=== PATIENT | female | born 1940 | race Caucasian/White ===

== ENCOUNTER 2024-07-06 17:21 | Emergency (ER) | payer MEDICARE, OTHER ==
[~2024-07-06] VITALS: Ht 157.5 cm; Wt 73.2 kg
[2024-07-06 17:23] VITALS: BP 166/68; PULSE 91; RESP 16; O2SAT 97
[2024-07-06 18:36] LABS: BILIRUBIN,URINE NEGATIVE (Neg); CLARITY,URINE CLOUDY (Clear); COLOR,URINE YELLOW (Yellow); GLUCOSE, URINE NEGATIVE (Neg); KETONES,URINE TRACE mg/dl (Neg); LEUKOCYTE ESTERASE ,URINE SMALL (Neg); NITRITES, URINE NEGATIVE (Neg); OCCULT BLOOD,URINE TRACE-INTACT (Neg); PROTEIN,URINE NEGATIVE (Neg); UROBILINOGEN,URINE 0.2 E.U/dL (0.2-1.0)
[2024-07-06 18:38] LABS: UA COLLECTION TYPE CLN CATCH MIDSTREAM
[2024-07-06 18:54] LABS: BACTERIA,URINE 1+ /HPF (Neg); MUCUS STRANDS NONE SEEN /LPF (Neg); RBC,URINE 0-2 /HPF (0-2); SQUAMOUS EPITHELIAL CELL,UR NONE SEEN /LPF (FEW); WBC CLUMPS,URINE MODERATE /HPF (NEGATIVE); WBC,URINE 30-50 /HPF (0-4)
[2024-07-06] MEDS ORDERED: CIPR-202 PO (18:57)
[2024-07-06] MEDS ORDERED: PHEN-824 PO (19:00)
[2024-07-06 19:07] VITALS: TEMP 98.2
[2024-07-06] MEDS: ciprofloxacin 250mg tablet PO ONE (19:12)
[2024-07-06] MEDS: phenazopyridine 100mg tablet PO ONE (19:12)
== END 2024-07-06 19:10 | disposition home or self-care (01) ==
LOC: ER 17:21
DX: N39.0 Urinary tract infection, site not specified (principal); I10 Essential (primary) hypertension; Z90.49 Acquired absence of other specified parts of digestive tract; Z88.1 Allergy status to other antibiotic agents; Z79.899 Other long term (current) drug therapy; Z98.890 Other specified postprocedural states
CPT/HCPCS: 81001; 87088; 99283

== ENCOUNTER 2025-05-19 16:10 | Emergency (ER) | payer MEDICARE, OTHER ==
[~2025-05-19] VITALS: Ht 157.5 cm; Wt 72.3 kg
[~2025-05-19 16:10] MED LIST: PHEN-824 PO
[2025-05-19 17:15] LABS: LEUKOCYTE ESTERASE ,URINE LARGE (Neg); NITRITES, URINE NEGATIVE (Neg); OCCULT BLOOD,URINE SMALL (Neg)
[2025-05-19] MEDS ORDERED: SULF1TAB49 PO (17:15)
--- NOTE | 2025-05-19 17:16 | Physician Documentation ---
History of Present Illness ~ Chief Complaint: Urinary Symptoms Stated Complaint: UTI Time Seen by MD: 16:21 Primary Medical Doctor: Dr. Camacho Source: patient Mode of Arrival: POV Exam Limitations: no limitations HPI 84-year-old female with history of chronic UTIs does see a amusement or recreation card checker and has a pessary. Patient is using estrogen cream as well due to frequent UTIs. Patient completed a course of cefdinir a couple of weeks ago. Patient states that 2 days ago she started to have dysuria urgency and frequency no back pain or fevers Medication Reconciliation Allergies: Coded Allergies: azithromycin (Verified Allergy, Unknown, 05/19/25) Scheduled Phenazopyridine HCl (Pyridium), 1 TAB PO Q8H Past Medical History Past Medical History: Hypertension Past Surgical History: cholecystectomy, orthopedic surgeries Alcohol Use: Rarely Drug Use: none Lives In: Home Review of Systems All Other Systems at this time: Reviewed and Negative Genitourinary: Reports: see HPI Physical Exam Vital Signs: RN Vital Signs have been reviewed: Yes, Temperature: 98.0, Source: Temporal, Heart Rate: 96, Respiratory Rate: 18, BP: 162/69, Pulse Oximetry: 98, Weight: 72.300 Oxygen Flow Rate: 0 Physical Exam General: Alert, no apparent distress. HEENT: moist mucous membranes. Neck: Full range of motion. Respiratory: No respiratory distress speaking in full sentences Chest: No accessory muscle use. Cardiovascular: Appears well perfused Neurologic: Oriented x4. Psychiatric: Normal mood and affect. Skin: Normal color, warm and dry. No edema, no ecchymosis. Progress Results/Orders Results/Orders Orders - SUN LEE NP Urinalysis, Cult If Indicated (05/19/25 16:21) Vital Signs 05/19/25 16:17 Temp 98.0 Pulse 96 Resp 18 B/P (MAP) 162/69 Pulse Ox 98 O2 Flow Rate 0 Laboratory Tests Test 05/19/25 16:21 Urine Comment Medical Decision Making Additional information obtaine: old records, family Findings UA to evaluate for UTI versus atrophy although patient is on estrogen cream. Antibiotics prescribed to follow up with disassembler and primary care for a more long- term treatment for chronic UTIs. Urinary Diff Dx:Considerations: Include: UTI, Vaginitis Genital Diff Dx:Considerations: Unlikely: -Complete, - Incomplete, -Inevitable, Ablortion-Missed, -Threatened, Abruptio placentae, Bartholin abscess, Bartholin cyst, Blood loss anemia, Constipation, Cervicitis, Dsymenorrhea, Ectopic , Foreign body, Hormonal, Hidradenitis suppurativa, Intrauterine , Menorrhagia, Menometrorrhagia, Menstrual bleeding, Myomatous uterus, Perianal abscess, Physiologic discharge, Pinworms, PID, Placenta previa, , Precipitous Hct, Trauma, UTI, Vaginitis(osis)-Atrophic, Vaginitis, Vaginitis(osis)-Bacterial, Vaginitis(osis)- Candidal, Vaginitis(osis)-Contact, Vaginitis(osis)-Herpes, Vaginitis(osis)- Trich., Other Departure Time of Disposition: 17:13 Disposition: 01 HOME / SELF CARE / HOMELESS Impression: Primary Impression: Acute urinary tract infection Condition: Stable Discharge Instructions: Urinary Tract Infection, Adult Additional Instructions: Take antibiotics as prescribed and follow up with primary care and disassembler for further treatment and evaluation of chronic UTIs. Referrals: NO PRIMARY CARE PROVIDER (PCP) Prescriptions Sulfamethoxazole/Trimethoprim (Bactrim Ds Tablet) 800 Mg-160 Mg Tablet 1 TAB PO DAILY for 10 Days, #10 TAB Prov: SUN LEE NP 05/19/25 Education Educated: Patient Educated regarding: diagnosis, treatment, need for follow up Signature Scribe Signature: No scribe Attestation: The note accurately reflects work and decisions made by me.Sun Lee - [place] 05/19/25 17:16 SUN LEE NP May 19, 2025 17:16
[2025-05-19 17:23] LABS: UA COLLECTION TYPE CLN CATCH MIDSTREAM
[2025-05-19 17:25] LABS: MUCUS STRANDS NONE SEEN /LPF (Neg); SQUAMOUS EPITHELIAL CELL,UR FEW /LPF (FEW)
[2025-05-19] MEDS: sulfamethoxazole/trimethoprim DS (800/160mg) tablet PO ONE (17:43)
[2025-05-19 17:59] VITALS: BP 157/82; PULSE 86; RESP 18; TEMP 98; O2SAT 96
== END 2025-05-19 18:01 | disposition home or self-care (01) ==
LOC: ER 16:11
DX: N39.0 Urinary tract infection, site not specified (principal); I10 Essential (primary) hypertension; Z88.1 Allergy status to other antibiotic agents; Z87.440 Personal history of urinary (tract) infections; Z90.49 Acquired absence of other specified parts of digestive tract; Z79.899 Other long term (current) drug therapy; Z98.890 Other specified postprocedural states
CPT/HCPCS: 81001; 87088; 99283